=== PATIENT | female | born 1950 | race Caucasian/White ===

== ENCOUNTER → 2016-04-14 | Day surgery (SDC) | payer OTHER, MEDICARE ==
--- NOTE | 2016-04-12 12:05 | History & Physical Pre-Op ---
General Information and HPI History of Present Illness: Marylou is a 65-year-old female with a long-standing and worsening complaint of painful bunions involving both the left and right feet. The patient has undergone an extended course of conservative care, including shoe gear and activity modification, rest, immobilization course of NSAIDs. None of this is yielded her any significant relief. The patient presents today for preoperative surgical consultation. The patient was referred to our office from Carlos Ocampo DPM. Allergies/Medications Allergies: Coded Allergies: kiwi (ITCHY TONGUE 04/10/16) metronidazole (From FLAGYL) (TINGLING HANDS AND FEET 04/10/16) sulfamethoxazole (From BACTRIM) (DIARRHEA 04/10/16) trimethoprim (From BACTRIM) (DIARRHEA 04/10/16) Home Med list Alprazolam 0.25 MG TABLET 1 TAB PO PRN UNKNOWN (Reported) Amitriptyline HCl (Unknown Strength) TABLET (Unknown Dose) PO QPM UNKNOWN ( Reported) Bisoprolol Fumarate/Hctz (Ziac 2.5-6.25 MG Tablet) 2.5 MG-6.25 MG TABLET 1 TAB PO DAILY UNKNOWN (Reported) Estradiol (Vagifem) (Unknown Strength) TABLET (Unknown Dose) AD UNKNOWN ( Reported) Gabapentin 600 MG TABLET 1 TAB PO BID UNKNOWN (Reported) Gabapentin (Neurontin) (Unknown Strength) CAPSULE (Unknown Dose) PO 1200 UNKNOWN (Reported) Levothyroxine Sodium (Synthroid) 88 MCG TABLET 1 TAB PO DAILY THYROID ( Reported) Pantoprazole Sodium (Protonix) 40 MG TABLET.DR 1 TAB PO DAILY GI (Reported) Past History Medical History Cardiovascular: hypertension Gastrointestinal: GERD Psychiatric: anxiety Surgical History Pertinent Surgical History: hysterectomy Review of Systems Review of Systems: Review of systems unremarkable except for that noted in history of present illness Exam & Diagnostic Data Physical Exam: Lungs clear bilaterally. Heart sounds rate and rhythm regular. Lower extremity physical exam demonstrates intact pedal pulses bilaterally. Pulses dorsalis pedis and posterior tibial arteries are palpable bilaterally. Patient without any sensory motor deficits. Deep tendon reflexes grossly intact. Patient noted to have seen in pain with palpation and range of motion through the left and right first metatarsophalangeal joints. There is also a palpable click noted to the second interspace right foot consistent with a Bettie sign. Assessment/Plan Assessment/Plan: Bunion left and right feet with neuroma right second interspace. A lengthy discussion reviewing both surgical and conservative options was held the patient at bedside and the patient elects to go forward with surgery despite the risks. As Ranked By This Provider Problem List: 1. Acquired hallux valgus of right foot 2. Acquired hallux valgus of left foot Attending MD Review Statement Attending Statement Attending MD Statement: examined this patient
[~2016-04-14] VITALS: Ht 160 cm; Wt 79.4 kg
[~2016-04-14] MED LIST: ALPRAZOLAM0.25 M1 PO; AMITRIPTYLINE H25 M2 PO; GABAPENTIN600 M1 PO; NEURONTIN300 M1 PO; PROTONIX40 M3 PO; SYNTHROID88 MCG PO; VAGIFEM10 MC1; ZIAC 2.5-6.251 EACH PO
--- NOTE | 2016-04-14 11:15 | Operative Report ---
Operative/Inv Procedure Report Surgery Date: 04/14/16 Name of Procedure: 1 Turner bunionectomy right foot 2 Turner bunionectomy left foot 3 excision of neuroma right foot Pre-Operative Diagnosis: 1 hallux valgus right foot 2 hallux valgus left foot 3 neuroma second interspace right foot Post-Operative Diagnosis: The same Estimated Blood Loss: scant Surgeon/Acid Extractor: KEN MERINO DPM Anesthesia: moderate sedation, block Operative/Procedure Note Note: After obtaining informed consent the patient was brought to the operating room and placed on the operating table in the supine position. The patient was then securely fastened to the operating table utilizing safety belt. After administration of IV sedation, 10 mL of 0.5% Marcaine plain was infiltrated about the patient's left and right ankles. 2 g of Ancef were delivered intravenously times one dose. 2 well-padded ankle tourniquets were placed about the patient's bilateral extremities. Left right feet were then scrubbed prepped and draped in usual aseptic manner. Right lower 70 was elevated to examine to limb, which point the ankle tourniquet was inflated 250 mmHg. Digitorectal dorsal aspect the right foot, where a 6 cm linear incision was made just medial to the course of the extensor hallucis longus tendon. Skin was as a 15 blade and deepened subtenons tissues. The dissection was then carried down to the capsular structures were in inverted WAS capsulotomy was performed exposing the medial eminence. This was then resected with a sagittal bone saw. Attention directed to the interspace, where a release of the fibular suspensory ligament and the oblique head of the abductor hallucis tendon was performed. The extensor hallucis brevis tendon was identified and tenotomized. A Chevron type osteotomy was then performed and the capital fragment was transposed laterally. The osteotomy was then fixated utilizing standard AO fixation techniques. The capture structures reapproximated with 3-0 Vicryl septae stitches reprepped with 4-0 Vicryl. Skin edges were then reapproximated 4-0 Monocryl. Incision was dressed with Steri-Strips and Xeroform. Attention directed the second interspace where a 4 cm linear incision was made overlying the distal interspace. Skin incised 15 blade and deepened subtenons tissues. The dissection was then carried down to the interspace, where the digital branches of the neuroma were identified and these were freed and the dissection continued proximally. The neuroma was freed of adjacent soft tissue attachments distracted distally and cut proximally. The specimen was sent for pathologic inspection. Nipple was then irrigated with Anthony normal sterile saline and the deep tissues reports a 4-0 Vicryl and the skin edges reapproximated 4-0 nylon. Incision was then dressed with Xeroform 4 x 4's Kerlix and an Porfirio wrap. The tourniquet was then deflated and the left lower extremity was then elevated, which point the ankle tourniquet was inflated 250 mmHg. Attention directed dorsal aspect the left foot, where 6 cm linear incision was made just medial to the course of the extensor listless longus tendon. Skin was signed 15 blade and deepened subtenons tissues. An inverted L capsulotomy was performed exposing the medial eminence. This was removed a sagittal bone saw. Attention was then directed first interspace where lateral capsulotomy was performed with release of the fibular suspensory ligament and the oblique head of the abductor hallucis tendon. The extensor was harvested was identified and tenotomized. A Chevron type osteotomy was then performed and transposed laterally. It was then fixated utilizing standard AO fixation techniques. The capture structures reapproximated 3-0 Vicryl and the subtenons tissues reports a 4-0 Vicryl. The skin edges were then reapproximated with 4-0 Monocryl and the incision was dressed with Steri-Strips Xeroform 4 x 4's Kerlix and Porfirio wrap. The patient was noted to tolerate both procedure and anesthesia well and the patient was transported from the operating room to recovery by sent stable best assess intact all digits bilateral feet.
== END ==
LOC: STS 01:53
DX: M20.11 Hallux valgus (acquired), right foot (principal); M20.12 Hallux valgus (acquired), left foot; G57.61 Lesion of plantar nerve, right lower limb; M19.072 Primary osteoarthritis, left ankle and foot; M19.071 Primary osteoarthritis, right ankle and foot; I10 Essential (primary) hypertension; K21.9 Gastro-esophageal reflux disease without esophagitis
CPT/HCPCS: 88304; J0690; J1885; J2001; J2250